=== PATIENT | female | born 1995 | race African-American/Black ===

== ENCOUNTER 2017-09-18 11:29 | Emergency (ER) | payer OTHER ==
[~2017-09-18] VITALS: Ht 177.8 cm; Wt 72.1 kg
[~2017-09-18 11:29] MED LIST: IBUPROFEN 600600 M1 PO; TRAMADOL 50 MG50 MG PO
[2017-09-18 11:33] VITALS: BP 112/72
[2017-09-18 11:45] LABS: URINE BILIRUBIN NEGATIVE (Negative); URINE BLOOD NEGATIVE (Negative); URINE CLARITY CLEAR; URINE COLOR YELLOW; URINE GLUCOSE-RANDOM NEGATIVE (Negative); URINE KETONES NEGATIVE (Negative); URINE LEUKOCYTES-REFLEX 1+ (Negative); URINE NITRITE-REFLEX NEGATIVE (Negative); URINE PROTEIN NEGATIVE (Negative); URINE SPECIFIC GRAVITY 1.025 (1.005-1.030); URINE UROBILINOGEN 0.2 E.U./dl (0.2-1.0)
[2017-09-18 11:51] LABS: CASTS None Seen /LPF (None Seen); CRYSTALS None Seen /LPF (None Seen); MUCUS 0-3 Light strn/LPF (None Seen); SQUAMOUS 4-10 Moderate /LPF (0-3); URINE RBC 0-2 Rare /HPF (0-2); URINE WBC-REFLEX 6-15 Few /HPF (0-5)
[2017-09-18] MEDS ORDERED: DIFLUCAN150 MG PO (12:11)
[2017-09-18] MEDS ORDERED: BACTRIM DS TAB1 EACH PO (12:11)
== END 2017-09-18 12:10 | disposition home or self-care (01) ==
LOC: M.ERS 11:29
PROVIDERS: Nurse Practitioner Family
DX: N39.0 Urinary tract infection, site not specified (principal); N76.0 Acute vaginitis

== ENCOUNTER 2020-06-27 17:16 | Emergency (ER) | payer OTHER ==
[~2020-06-27] VITALS: Ht 177.8 cm; Wt 95.3 kg
[~2020-06-27 17:16] MED LIST changes: +BACTRIM DS TAB1 EACH PO; +DIFLUCAN150 MG PO
[2020-06-27] MEDS ORDERED: PROBIOTIC1 EAC2 PO (17:26)
[2020-06-27] MEDS ORDERED: DIFLUCAN200 MG PO (18:06)
[2020-06-27 18:11] VITALS: BP 137/85
== END 2020-06-27 18:11 | disposition home or self-care (01) ==
LOC: M.ERS 17:16
DX: B37.9 Candidiasis, unspecified (principal)